=== PATIENT | male | born 1940 | race Caucasian/White ===

== ENCOUNTER → 2017-11-08 | Outpatient (CLI) | payer MEDICARE, OTHER ==
[~2017-11-08] MED LIST: ASPI-1471 PO; BARIUM SULFATE 176 GM BTL PO ONE; BARIUM SULFATE 340 GM POWD ONE; CETI10CA8 PO; DABI150C3 PO; DILT180C11; ETAN25KI5 SQ; FLU44R INH; FLUT16SP19 NS; FOLI0.8C; GUAI100G4 PO; LANI SUBQ; LEVO200T44 PO; METH25VI31 IJ; MIRA25TA PO; OMEP-218 PO; PRAV20TA65 PO; SITA1TBM4 PO; TAMS0.4C70 PO
--- NOTE | 2017-11-08 15:17 | RADIOLOGY IMAGING REPORT ---
FACILITY: [facility] PATIENT NAME: Vini Knutson : 1940 MR: [id number] V: [id number] EXAM DATE: ORDERING PHYSICIAN: RENEE DOTSON TECHNOLOGIST: Location: [facility] - [place] Patient: Vini Knutson : 1940 Visit/Account:[id number] Date of Sevice: 11/08/2017 Exam type: UPPER GI W/SMALL BOWEL SERIES History: GERD, diarrhea Comparison: None. Findings: Double contrast upper GI series was performed with thick and thin barium and air contrast. There is a small hiatal hernia with a large amount of gastroesophageal reflux observed. There is no significa nt esophageal narrowing or mucosal erosion. The stomach duodenal bulb appeared unremarkable. The barium was followed throughout the normal-appearing small bowel to the unremarkable terminal ileu m. There is no evidence of bowel obstruction. The mucosal pattern appeared unremarkable. Transit t cecile to the right-sided colon was three hours. The fluoroscopy dose area product was 12,137.6 micro-Rider per meter squared IMPRESSION: 1. Small hiatal hernia with a large amount of gastroesophageal reflux. No evidence of significant es ophageal narrowing or mucosal erosion Unremarkable small bowel follow-through with transit time to the right-sided colon of three hours Report Dictated By: Mariam Gutierrez MD at 11/08/2017 3:09 PM Report E-Signed By: Mariam Gutierrez MD at 11/08/2017 3:13 PM WSN:[email or web address]
== END ==
LOC: RAD 11-05 01:22
PROVIDERS: ATTEND Surgery
DX: K44.9 Diaphragmatic hernia without obstruction or gangrene (principal); K21.9 Gastro-esophageal reflux disease without esophagitis
CPT/HCPCS: 74245

== ENCOUNTER 2017-11-13 01:33 | Day surgery (SDC) | payer MEDICARE, OTHER ==
[~2017-11-13] VITALS: Ht 177.8 cm; Wt 147.4 kg
[~2017-11-13 01:33] MED LIST changes: -BARIUM SULFATE 176 GM BTL PO ONE; -BARIUM SULFATE 340 GM POWD ONE; +LIDOCAINE/SOD BICARB 8.4% SYR ID ONE; +NORMOSOL R SOLN(*) 1000 ML BAG 1,000 ML IV PRN
[2017-11-13] MEDS ORDERED: NORMOSOL R SOLN(*) 1000 ML BAG 1,000 ML IV PRN (09:10)
[2017-11-13] MEDS ORDERED: LIDOCAINE/SOD BICARB 8.4% SYR ID ONE (09:10)
[2017-11-13 09:36] LABS: INR 1.01
[2017-11-13] MEDS ORDERED: GLYCOPYRROLATE 0.2MG/ML 1 ML INJ IVP ONE (09:40)
[2017-11-13 10:07] VITALS: BP 104/62
[2017-11-13] MEDS ORDERED: PROPOFOL EMUL(*) 10MG/ML 20 ML 20 ML ONE ×2 (10:28→13:12)
[2017-11-13] MEDS ORDERED: SUCCINYLCHOL CHL 200MG/10ML VL ONE (12:24)
[2017-11-13] MEDS ORDERED: SUGAMMADEX SOD 500 MG/5 ML SDV ONE (12:49)
[2017-11-13] MEDS ORDERED: DEXAMETHASONE SOD 4 MG/ML VIAL ONE (12:52)
--- NOTE | 2017-11-13 13:06 | Short(Outpt) Discharge Summary ---
Discharge Summary Reason for Hosp/Final Diag: (1) GERD (gastroesophageal reflux disease) Status: Chronic Hospital Course & Plan: EGD and colonoscopy completed without problems. Poor colon prep. (2) Diarrhea Status: Chronic Departure Discharge to: Home, Self Care Discharge Instructions Home Meds Reported Medications Guaifenesin (MUCINEX) Unknown Strength Gran.pack, PO 10/24/17 Etanercept (ENBREL) Unknown Strength Vial, SQ QWEEK, VIAL 10/24/17 Methotrexate Sodium (METHOTREXATE) Unknown Strength Vial, IJ, VIAL 10/24/17 Fluticasone Prop 50 Mcg Ns (FLONASE 50 MCG NS) Unknown Strength Mcneal.susp, NS BID, BOT 10/24/17 Fluticasone Prop 44 Mcg (FLOVENT HFA 44 MCG) Unknown Strength Inha, INH, INH 10/24/17 Aspirin (ASPIR 81) 81 Mg Tablet.dr, 81 MG PO QDAY, TAB 10/24/17 Cetirizine Hcl (ZYRTEC) Unknown Strength Capsule, PO QDAY, CAPSULE 10/24/17 Pravastatin Sodium (PRAVACHOL) Unknown Strength Tablet, PO QDAY, TAB 10/24/17 Folic Acid (Folic Acid) Unknown Strength Capsule 10/24/17 Dabigatran Etexilate Mesylate (PRADAXA) 150 Mg Capsule, 150 MG PO BID, CAPSULE 10/24/17 Diltiazem HCl (Diltiazem 24Hr Cd) Unknown Strength Cap.er.24h 10/24/17 Omeprazole Magnesium (PRILOSEC OTC) 20 Mg Tablet.dr, 1 TAB PO QDAY, TAB 10/24/17 Mirabegron (MYRBETRIQ) Unknown Strength Tab.er.24h, PO QDAY 10/24/17 Tamsulosin Hcl (TAMSULOSIN HCL) 0.4 Mg Cap.er.24h, 0.4 MG PO DAILY, CAP 10/24/17 Levothyroxine Sodium (SYNTHROID) 200 Mcg Tablet, 200 MCG PO QDAY 10/24/17 Insulin Glargine (LANTUS) 100 Unit/Ml Soln, 76 UNIT SUBQ BID, ML 10/24/17 Sitagliptin Phos/Metformin Hcl (JANUMET XR 50-1,000 MG TABLET) 1 Each Tbmp.24hr, 1 EACH PO BID 10/24/17 Diet: Regular Activity: As Tolerated Special Instructions: Your upper endoscopy and colonoscopy were completed without problems. I didn't find any abnormalities in your esophagus, stomach, or duodenum. I wasn't able to adequately inspect your colon because it wasn't adequately cleaned out. My office will call you in the next day or two and scheduled a follow up appointment to discuss your symptoms and see if we can help you feel better and if we need to order any further testing. I will recommend another colonoscopy in the next 6 months so we can get you caught up with colorectal cancer screening; we'll have to come up with a different, stronger, bowel prep for you. Problem Qualifiers (1) GERD (gastroesophageal reflux disease): Esophagitis presence: without esophagitis Qualified Codes: K21.9 - Gastro- esophageal reflux disease without esophagitis (2) Diarrhea: Diarrhea type: unspecified type Qualified Codes: R19.7 - Diarrhea, unspecified RENEE DOTSON MD Nov 13, 2017 13:06
[2017-11-13 13:30] VITALS: BP 124/79
[2017-11-13 13:50] VITALS: BP 128/83
[2017-11-13 13:53] VITALS: BP 136/94
== END 2017-11-13 13:30 | disposition home or self-care (01) ==
LOC: OR 01:33
PROVIDERS: ATTEND Surgery
DX: K21.9 Gastro-esophageal reflux disease without esophagitis (principal); E11.9 Type 2 diabetes mellitus without complications; I48.2 Chronic atrial fibrillation; M62.08 Separation of muscle (nontraumatic), other site; R19.7 Diarrhea, unspecified
CPT/HCPCS: 00811; 36415; 36416; 43235; 45378; 82948; 83516; 85610; J0330; J1100; J2704

== ENCOUNTER → 2017-12-03 | Outpatient (CLI) | payer MEDICARE, OTHER ==
[~2017-12-03] MED LIST changes: -LIDOCAINE/SOD BICARB 8.4% SYR ID ONE; -NORMOSOL R SOLN(*) 1000 ML BAG 1,000 ML IV PRN
== END ==
LOC: LAB 13:21
PROVIDERS: ATTEND Internal Medicine Cardiovascular Disease
DX: I25.10 Atherosclerotic heart disease of native coronary artery without angina pectoris (principal)
CPT/HCPCS: 36415; 82465; 83718; 84478

== ENCOUNTER → 2018-08-28 | Outpatient (CLI) | payer MEDICARE, OTHER ==
[2018-08-28 12:59] LABS: PLATELET COUNT, AUTOMATED 348 K/uL (150-450)
[2018-08-28 13:22] LABS: LDL CHOLESTEROL 69 mg/dl
== END ==
LOC: LAB 12:17
PROVIDERS: ATTEND Nurse Practitioner Family
DX: E03.9 Hypothyroidism, unspecified (principal); E11.9 Type 2 diabetes mellitus without complications; E78.5 Hyperlipidemia, unspecified; J45.909 Unspecified asthma, uncomplicated; N40.0 Benign prostatic hyperplasia without lower urinary tract symptoms
CPT/HCPCS: 36415; 82040; 82247; 82310; 82374; 82435; 82465; 82565; 82947; 83036; 83718; 84075; 84132; 84153; 84155; 84295; 84443; 84450; 84460; 84478; 84520; 85025